=== PATIENT | male | born 1980 | race Caucasian/White ===

== ENCOUNTER 2018-03-03 12:06 | Emergency (ER) | payer SELFPAY ==
[2018-03-03] MEDS ORDERED: Naproxen TAB* 250 MG PO ONE (13:03)
--- NOTE | 2018-03-03 13:30 | ED ---
Lower Extremity - HPI Summary HPI Summary: Pt is a 37 y/o male who presents to the ED c/o right knee pain. He was working on remodeling a house today when his left foot went through the floor. His right foot and knee then went to the side, and his kneecap dislocated. Pt straightened his leg and the kneecap went back in, but now he feels like his knee is tight and weak. He notes his knee feels stable. The pain is located mainly on the top of his knee, and is an 8/10 in severity. Pt has dislocated his right knee 6 times before. - History of Current Complaint Chief Complaint: EDExtremityLower Stated Complaint: DISLOCATED RT KNEE Time Seen by Provider: 03/03/18 12:52 Hx Obtained From: Patient Mechanism Of Injury: Twisted Onset of Pain: Immediate Onset/Duration: Still Present Severity Currently: Severe Pain Intensity: 8 Pain Scale Used: 0-10 Numeric Timing: Constant Location: Is Discrete @ - Right knee Associated Signs And Symptoms: Positive: Knee Pain Related History: Occupational Injury - Allergies/Home Medications Allergies/Adverse Reactions: Allergies Allergy/AdvReac Type Severity Reaction Status Date / Time Penicillins Allergy Unknown Verified 03/03/18 13:31 Reaction Details PMH/Surg Hx/FS Hx/Imm Hx Endocrine/Hematology History: Denies: Hx Diabetes Musculoskeletal History: Reports: Other Musculoskeletal History - Right knee dislocations Sensory History: Denies: Hx Contacts or Glasses Opthamlomology History: Denies: Hx Contacts or Glasses - Immunization History Immunizations Up to Date: Yes Infectious Disease History: No Infectious Disease History: Denies: Traveled Outside the [place] in Last 30 Days - Family History Known Family History: Negative: Diabetes - Social History Alcohol Use: Rare Hx Substance Use: No Substance Use Type: Reports: None Hx Tobacco Use: Yes Smoking Status (MU): Light Every Day Tobacco Smoker Review of Systems Negative: Fever Positive: Arthralgia - Right knee All Other Systems Reviewed And Are Negative: Yes Physical Exam - Summary Physical Exam Summary: Appearance: Well appearing, no pain distress Skin: warm, dry, reflects adequate perfusion Head/face: normal Eyes: EOMI, CHERELLE ENT: mucous membranes moist Neck: supple, non-tender Respiratory: CTA, breath sounds present Cardiovascular: RRR, pulses symmetrical Abdomen: non-tender, soft Bowel Sounds: present Musculoskeletal: strength/ROM intact, no effusion, soft tissue swelling just anterior and medial to patella, medial condyle tenderness Neuro: normal, sensory motor intact, A&Ox3 Triage Information Reviewed: Yes Vital Signs On Initial Exam: Initial Vitals Temp Pulse Resp BP Pulse Ox 98.7 F 95 20 158/98 97 03/03/18 12:31 03/03/18 12:31 03/03/18 12:31 03/03/18 12:31 03/03/18 12:31 Vital Signs Reviewed: Yes Diagnostics - Vital Signs Vital Signs Temp Pulse Resp BP Pulse Ox 03/03/18 13:00 85 98 03/03/18 12:46 79 98 03/03/18 12:31 98.7 F 95 20 158/98 97 - Laboratory Lab Statement: Any lab studies that have been ordered have been reviewed, and results considered in the medical decision making process. - Radiology Knee XR Radiology Interpretation Completed By: Radiologist - Small joint effusion. Slight lateral subluxation of the patella relative to the femoral trochlea. Chronic appearing ossicle adjacent to the medial pole the patella which may represent sequela of remote injury involving the medial patellofemoral ligament or retinaculum. No compelling acute fracture or osteochondral lesion evident. Negative for joint space narrowing. Soft tissue swelling most prominent superficial to the patellar tendon. ED physician reviewed radiology report. Lower Extremity Course/Dx - Course Course Of Treatment: Patient subluxed his patella which he was able to reduce quickly. Some swelling in the area. Treated with Jluis wrap, NSAIDs. Referred to orthopedist. - Diagnoses Provider Diagnoses: Patellar dislocation Discharge - Sign-Out/Discharge Documenting (check all that apply): Patient Departure - Discharge - Discharge Plan Condition: Improved Disposition: HOME Prescriptions: Naproxen [Naproxen 500 mg tab] 500 mg PO BID PRN #12 [email or web address] VALVERDE Reason: Pain Patient Education Materials: Patellar Dislocation (ED) Referrals: [facility] [Outside] [facility] [place] [facility] REFERRAL [Outside] Etienne Rondon MD [Medical Doctor] - Additional Instructions: Ice, range of motion, and wear a support band for this in the future (you can obtain at [facility]). Return if worse, new symptoms or other concerns. - Billing Disposition and Condition Condition: IMPROVED Disposition: Home - Attestation Statements Document Initiated by Scribe: Yes Documenting Scribe: Angelita Villanueva Provider For Whom Scribe is Documenting (Include Credential): Parveen Johnson MD Scribe Attestation: IAngelita, scribed for Parveen Johnson MD on 03/03/18 at 1746. Scribe Documentation Reviewed: Yes Provider Attestation: The documentation as recorded by the scribeAngelita accurately reflects the service I personally performed and the decisions made by me, Parveen Johnson MD
--- NOTE | 2018-03-03 13:45 | RAD ---
Indication: Reported patellar dislocation subsequently reduced by the patient. Comparison: None. Technique: RIGHT knee: AP, tunnel, lateral, sunrise views. REPORT AND IMPRESSION: #. Small joint effusion. #. Slight lateral subluxation of the patella relative to the femoral trochlea. #. Chronic appearing ossicle adjacent to the medial pole the patella which may represent sequela of remote injury involving the medial patellofemoral ligament or retinaculum. #. No compelling acute fracture or osteochondral lesion evident. #. Negative for joint space narrowing. #. Soft tissue swelling most prominent superficial to the patellar tendon.
[2018-03-03 13:46] VITALS: BP 153/85
== END 2018-03-03 13:45 | disposition home or self-care (01) ==
LOC: ED 12:06
DX: S83.004A Unspecified dislocation of right patella, initial encounter (principal); W17.89XA Other fall from one level to another, initial encounter; Y93.E9 Activity, other interior property and clothing maintenance; Y92.009 Unspecified place in unspecified non-institutional (private) residence as the place of occurrence of the external cause; Z88.0 Allergy status to penicillin; Z72.0 Tobacco use
CPT/HCPCS: 99282; A9270-GY